=== PATIENT | female | born 1990 | race Caucasian/White ===

== ENCOUNTER → 2018-09-30 | Outpatient (CLI) | payer OTHER ==
[~2018-09-30] MED LIST: AMOX-362 PO; HYDR-653 PO; NORG1TAB74 PO
[2018-09-30 17:34] LABS: PLATELET COUNT, AUTOMATED 327 K/uL (150-450)
--- NOTE | 2018-09-30 22:44 | RADIOLOGY IMAGING REPORT ---
FACILITY: [facility] PATIENT NAME: Britt Chandler : 1990 MR: [id number] V: [id number] EXAM DATE: ORDERING PHYSICIAN: THELMA LOGAN TECHNOLOGIST: Location: [facility] - [place], [place] Patient: Britt Chandler : 1990 Visit/Account:[id number] Date of Sevice: 09/30/2018 2 VIEWS CHEST INDICATION: Persistent cough. COMPARISON: None available FINDINGS: Cardiomediastinal silhouette and pulmonary vessels within normal limits. There is no focal infiltrate or lobar consolidation. There is no pneumothorax or pleural effusion. No nodule. Upper abdomen is unremarkable. No acute bony abnormality. IMPRESSION: 1. No acute cardiopulmonary process. Report Dictated By: Dany Che at 09/30/2018 10:38 PM Report E-Signed By: Dany hCe at 09/30/2018 10:40 PM WSN:[id number]
== END ==
LOC: RAD 16:47
PROVIDERS: ATTEND Nurse Practitioner Family
DX: R05 Cough (principal); R06.02 Shortness of breath; J06.9 Acute upper respiratory infection, unspecified
CPT/HCPCS: 36415; 71046; 82040; 82247; 82310; 82374; 82435; 82565; 82947; 84075; 84132; 84155; 84295; 84450; 84460; 84520; 85025